=== PATIENT | female | born 1960 | race American Indian/Alaskan Native ===

== ENCOUNTER 2019-09-04 10:00 | Outpatient (CLI) | payer MEDICARE ==
[2019-09-04] MEDS ORDERED: XYLOCAINE TOPICAL 4% TP ONE (10:30)
[2019-09-04] MEDS ORDERED: AD OINTMENT TP SCH (11:00)
== END 2019-09-04 10:01 | disposition home or self-care (01) ==
LOC: WOUND 10:00
PROVIDERS: ATTEND Surgery
DX: T87.89 Other complications of amputation stump (principal); E11.622 Type 2 diabetes mellitus with other skin ulcer; I70.242 Atherosclerosis of native arteries of left leg with ulceration of calf; L97.222 Non-pressure chronic ulcer of left calf with fat layer exposed; L97.812 Non-pressure chronic ulcer of other part of right lower leg with fat layer exposed; E11.22 Type 2 diabetes mellitus with diabetic chronic kidney disease; I13.2 Hypertensive heart and chronic kidney disease with heart failure and with stage 5 chronic kidney disease, or end stage renal disease; I50.9 Heart failure, unspecified; N18.6 End stage renal disease; E78.5 Hyperlipidemia, unspecified; K21.9 Gastro-esophageal reflux disease without esophagitis; E05.90 Thyrotoxicosis, unspecified without thyrotoxic crisis or storm; Z95.1 Presence of aortocoronary bypass graft; Z87.891 Personal history of nicotine dependence; Y83.5 Amputation of limb(s) as the cause of abnormal reaction of the patient, or of later complication, without mention of misadventure at the time of the procedure
CPT/HCPCS: 11042; G0463; 99214

== ENCOUNTER 2019-11-16 12:28 | Inpatient (IN) | payer MEDICARE ==
[2019-11-16] MEDS ORDERED: ALBUTEROL 2.5 MG/3 ML NEBU IH ONE (14:28)
--- NOTE | 2019-11-16 14:34 | Emergency Department Report ---
ED General Adult HPI - General Chief complaint: Dyspnea/Respdistress Stated complaint: DIFFICULTY BREATHING Time Seen by Provider: 11/16/19 14:11 Source: patient, family, EMS (EMS records not available at time of chart dictation.), RN notes reviewed, old records reviewed Mode of arrival: Stretcher Limitations: Physical Limitation - History of Present Illness Initial comments: Primary care Dr.: Dr Givens Nephrology: Dr Mcdowell CT surgeon at [facility]: Dr. Russo This is a 59-year-old female. Past medical history includes diabetes, hypertension, CHF, ejection fraction 40%, severe aortic stenosis, heart disease status post CABG 3, PVD, status post left below-knee amputation. Patient reports having had TAVR at [facility] October 2019. Today, patient presents to the ER with a complaint of cough, shortness of breath. She was brought to the hospital by EMS on CPAP. She was at hemodialysis today, but received an incomplete session, secondary to cough. She has been coughing for a few weeks. Sometimes the cough is dry, sometimes it is productive. She has chronic orthopnea, and typically sleeps sitting up. She saw her primary care doctor, who prescribed Tessalon Perles, doxycycline, and albuterol therapy. This really did not help her symptoms. She denies physical pain at this time. She feels like she is fluid overloaded s ubjectively. Cough is intermittent, painless, worsens with laying flat, improves when sitting up, and with rest. -: Gradual, week(s) Quality: other Consistency: other Improves with: other Worsens with: other Associated Symptoms: other - Related Data Home Medications Medication Instructions Recorded Confirmed Last Taken AtorvaSTATin [Lipitor] 20 mg PO QHS 08/26/19 09/06/19 08/25/19 Clopidogrel [Plavix] 75 mg PO QDAY 08/26/19 09/06/19 08/25/19 Gabapentin 100 mg PO QHS 08/26/19 09/06/19 08/25/19 Levothyroxine [Synthroid] 25 mcg PO QAM 08/26/19 09/06/19 08/25/19 Ondansetron HCl [Ondansetron TAB] 4 mg PO PRN PRN 08/26/19 09/06/19 08/25/19 Sevelamer Carbonate [Renvela] 800 mg PO TIDWM 08/26/19 09/06/19 08/25/19 amLODIPine 100 mg PO DAILY 08/26/19 09/06/19 08/25/19 carvediloL [Coreg] 25 mg PO BID 08/26/19 09/06/19 08/25/19 lisinopriL [Zestril TAB] 20 mg PO QDAY 08/26/19 09/06/19 08/25/19 Previous Rx's Medication Instructions Recorded Last Taken Type Insulin Regular, Human [HumuLIN R] 0 unit SQ AC #1 vial 08/30/19 Unknown Rx Allergies Allergy/AdvReac Type Severity Reaction Status Date / Time ceftriaxone [From Rocephin] AdvReac Intermediate Vomiting Verified 08/26/19 09:03 ED Review of Systems ROS: Stated complaint: DIFFICULTY BREATHING Other details as noted in HPI Constitutional: malaise Eyes: denies: eye discharge ENT: congestion Respiratory: cough, shortness of breath, wheezing Cardiovascular: edema Gastrointestinal: denies: abdominal pain Genitourinary: denies: dysuria Musculoskeletal: myalgia Skin: denies: lesions Neurological: weakness Psychiatric: anxiety Hematological/Lymphatic: denies: easy bleeding ED Past Medical Hx - Past Medical History Hx Hypertension: Yes Hx Heart Attack/AMI: Yes Hx Congestive Heart Failure: Yes Hx Diabetes: Yes Hx Renal Disease: Yes (T, , MON) Hx Asthma: No Hx COPD: No Additional medical history: Open heart surgery (March 2017), L Leg BKA - Surgical History Hx Coronary Stent: Yes Hx Open Heart Surgery: Yes Additional Surgical History: hernia repair. graft left upper arm, T&A - Social History Smoking Status: Former Smoker - Medications Home Medications: Home Medications Medication Instructions Recorded Confirmed Last Taken Type AtorvaSTATin [Lipitor] 20 mg PO QHS 08/26/19 09/06/19 08/25/19 History Clopidogrel [Plavix] 75 mg PO QDAY 08/26/19 09/06/19 08/25/19 History Gabapentin 100 mg PO QHS 08/26/19 09/06/19 08/25/19 History Levothyroxine [Synthroid] 25 mcg PO QAM 08/26/19 09/06/19 08/25/19 History Ondansetron HCl [Ondansetron TAB] 4 mg PO PRN PRN 08/26/19 09/06/1908/25/19 History Sevelamer Carbonate [Renvela] 800 mg PO TIDWM 08/26/19 09/06/19 08/25/19 History amLODIPine 100 mg PO DAILY 08/26/19 09/06/19 08/25/19 History carvediloL [Coreg] 25 mg PO BID 08/26/19 09/06/19 08/25/19 History lisinopriL [Zestril TAB] 20 mg PO QDAY 08/26/19 09/06/19 08/25/19 History Insulin Regular, Human [HumuLIN R] 0 unit SQ AC #1 vial 08/30/19 09/06/19 Unknown Rx ED Physical Exam - General Limitations: No Limitations, Physical Limitation General appearance: alert, anxious, in distress, obese - Head Head exam: Present: atraumatic, normocephalic - Eye Eye exam: Present: normal appearance, EOMI. Absent: nystagmus - ENT ENT exam: Present: normal exam, normal orophraynx, mucous membranes moist, normal external ear exam - Neck Neck exam: Present: normal inspection, full ROM. Absent: tenderness, meningismus - Respiratory Respiratory exam: Present: respiratory distress, rales, rhonchi - Cardiovascular Cardiovascular Exam: Present: regular rate, normal rhythm, systolic murmur, JVD. Absent: diastolic murmur, rubs, gallop - GI/Abdominal GI/Abdominal exam: Present: soft. Absent: distended, tenderness, guarding, rebound, rigid, pulsatile mass - Extremities Exam Extremities exam: Present: normal inspection, full ROM, pedal edema, other (2+ pulses noted in the bilateral upper extremities and right lower extremity. Left lower extremity status post left below-knee amputation. Left upper extremity fistula appreciated, without redness, pus or streaking.). Absent: calf t enderness - Back Exam Back exam: Present: normal inspection. Absent: tenderness, CVA tenderness (R), CVA tenderness (L), paraspinal tenderness, vertebral tenderness - Neurological Exam Neurological exam: Present: alert, other (there is no facial droop. The tongue is midline. Extraocular movements are intact bilaterally. Speaking in full sentences. Hearing is grossly intact. 5 out of 5 strength bilateral upper and lower extremities. Sensation is intact to light touch bilateral upper and lower extremities.). Absent: motor sensory deficit - Psychiatric Psychiatric exam: Present: anxious - Skin Skin exam: Present: warm, dry, intact, normal color. Absent: rash ED Course Vital Signs 11/16/19 11/16/19 11/16/19 14:03 14:49 14:59 Temperature 98.1 F Pulse Rate 88 88 88 Respiratory 23 Rate Blood Pressure 199/79 203/87 Blood Pressure 199/85 [Right] O2 Sat by Pulse 97 Oximetry 11/16/19 15:02 Temperature Pulse Rate 88 Respiratory Rate Blood Pressure Blood Pressure [Right] O2 Sat by Pulse Oximetry ED Medical Decision Making - Lab Data Result diagrams: 11/16/19 14:33 11/16/19 14:33 Vital Signs 11/16/19 11/16/19 11/16/19 14:03 14:49 14:59 Temperature 98.1 F Pulse Rate 88 88 88 Respiratory 23 Rate Blood Pressure 199/79 203/87 Blood Pressure 199/85 [Right] O2 Sat by Pulse 97 Oximetry 11/16/19 11/16/19 11/16/19 15:02 16:04 16:05 Temperature Pulse Rate 88 98 H 98 H Respiratory Rate Blood Pressure 198/79 198/97 Blood Pressure [Right] O2 Sat by Pulse Oximetry 11/16/19 16:06 Temperature Pulse Rate 98 H Respiratory Rate Blood Pressure 198/87 Blood Pressure [Right] O2 Sat by Pulse Oximetry Lab Results 11/16/19 11/16/19 11/16/19 Range/Units 14:33 14:33 14:33 WBC 8.0 (4.5-11.0) K/mm3 RBC 3.83 (3.65-5.03) M/mm3 Hgb 11.9 (10.1-14.3) gm/dl Hct 37.4 (30.3-42.9) % MCV 98 H (79-97) fl MCH 31 (28-32) pg MCHC 32 (30-34) % RDW 25.0 H (13.2-15.2) % Plt Count 121 L (140-440) K/mm3 PT 14.8 (12.2-14.9) Sec. INR 1.14 H (0.87-1.13) Sodium 134 L (137-145) mmol/L Potassium 5.6 H (3.6-5.0) mmol/L Chloride 93.7 L (98-107) mmol/L Carbon Dioxide 23 (22-30) mmol/L Anion Gap 23 mmol/L BUN 60 H (7-17) mg/dL Creatinine 8.7 H (0.7-1.2) mg/dL Estimated GFR 6 ml/min BUN/Creatinine Ratio 7 % Glucose 155 H (65-100) mg/dL Calcium 9.3 (8.4-10.2) mg/dL Magnesium 2.60 H (1.7-2.3) mg/dL Total Bilirubin 0.60 (0.1-1.2) mg/dL AST 39 (5-40) units/L ALT 19 (7-56) units/L Alkaline Phosphatase 102 (35-129) units/L Total Creatine Kinase 240 H (30-135) units/L NT-Pro-B Natriuret Pep > 30190 H (0-900) pg/mL Total Protein 8.5 H (6.3-8.2) g/dL Albumin 4.1 (3.9-5) g/dL Albumin/Globulin Ratio 0.9 % - EKG Data -: EKG Interpreted by Md EKG shows normal: sinus rhythm Rate: normal - EKG Data 11/16/19 16:09 The EKG today has motion artifact. It shows a sinus rhythm, with left axis deviation, left ventricular hypertrophy, poor R wave progression, QTC prolonged. This EKG is abnormal. The EKG is not consistent with STEMI. It appears to be grossly unchanged from prior EKG from 09/05/2019. - Radiology Data Radiology results: report reviewed, image reviewed X-ray of the chest shows pulmonary vascular congestion, enlarged cardiac silhouette, left hemithoracic monitoring device. No pneumothorax. No obvious infiltrate. - Medical Decision Making Differential diagnosis, including but not limited to: Hypertensive urgency, uremia, azotemia, hyperkalemia, fluid overload, bronchitis, sleep apnea, status post TAVR Assessment and plan: 59-year-old female with cough, shortness of breath, some hypoxia, evidence of fluid overload and hypertensive urgency, meets criteria for urgent hemodialysis, manifest by physical exam findings, hypoxia, chest x-ray findings, and laboratory studies. We contacted covering nephrology, Dr. Philip Wick, who will arrange for hemodialysis. Discussed with Hospital physician, Dr. Carl, who will accept the patient to the medical service. Discussed plan of care with patient and family, who verbalized understanding, and are amenable to admission. Patient at this point time has not followed up with an outpatient sleep doctor if she was supposed to, we discussed the need for follow-up after discharge, to rule in or rule out diagnosis of sleep apnea. Critical care attestation.: If time is entered above; I have spent that time in minutes in the direct care of this critically ill patient, excluding procedure time. ED Disposition Clinical Impression: End-stage renal disease needing dialysis, Shortness of breath, Volume overload, Hypertensive urgency Disposition: OP ADMIT IP TO THIS HOSP Is pt being admited?: Yes Condition: Stable
--- NOTE | 2019-11-16 14:38 | XRay Report ---
CHEST 1 VIEW INDICATION / CLINICAL INFORMATION: Dyspnea. FINDINGS: Comparison radiograph from 09/09/2019. Stable cardiomediastinal silhouette with cardiomegaly. An elec tronic device now projects over the left upper thorax. There is similar blunting of the left costophr enic sulcus and obscuration of a portion of the left diaphragm, but this may be due to superimpositio n of soft tissues over the lung. No pneumothorax. Overall, no significant change. Signer Name: Pito Berrios MD Signed: 11/16/2019 2:34 PM Workstation Name: [id number]
[2019-11-16] MEDS: NITROGLYCERIN 0.4 MG TAB SUBL SL PRN ×3 (14:49→16:10)
[2019-11-16] MEDS ORDERED: LISINOPRIL 20 MG TAB PO SCH (15:00)
[2019-11-16 15:10] LABS: Hematocrit 37.4 % (30.3-42.9); Hemoglobin 11.9 gm/dl (10.1-14.3); Mean Corpuscular HGB Conc 32 % (30-34); Mean Corpuscular Volume 98 fl (79-97); Platelet Count 121 K/mm3 (140-440); Red Blood Count 3.83 M/mm3 (3.65-5.03)
[2019-11-16 15:25] LABS: INR 1.14 (0.87-1.13)
[2019-11-16 15:29] LABS: BUN/Creatinine Ratio 7; Blood Urea Nitrogen 60 mg/dL (7-17)
[2019-11-16 15:30] LABS: Alanine Aminotransferase 19 units/L (7-56); Calcium 9.3 mg/dL (8.4-10.2)
[2019-11-16 15:31] LABS: Albumin 4.1 g/dL (3.9-5)
[2019-11-16] MEDS: amLODIPine 10 MG TAB PO SCH (16:04)
[2019-11-16] MEDS: carvediloL 25 MG TAB PO SCH ×2 (16:05→22:39)
[2019-11-16] MEDS ORDERED: SODIUM CHLORIDE 0.9% 100 ML IV PRN (16:06)
[2019-11-16 17:08] LABS: Hepatitis B Surface Antigen Non-Reactive (Negative); Hepatitis C Virus Antibody Non-Reactive (NonReactive)
[2019-11-16] MEDS ORDERED: ACETAMINOPHEN 500 MG TAB ONE (17:10)
[2019-11-16] MEDS ORDERED: ONDANSETRON HCL 4 MG PO PRN (19:37)
[2019-11-16] MEDS ORDERED: hydrALAZINE 20 MG/1 ML INJ IV PRN (19:40)
[2019-11-16] MEDS ORDERED: ONDANSETRON 4 MG/2 ML INJ IV PRN (19:41)
[2019-11-16] MEDS ORDERED: ACETAMINOPHEN 325 MG TAB PO PRN (19:41)
[2019-11-16] MEDS ORDERED: DEXTROSE 50% IN WATER (25GM) 50 ML SYRINGE IV PRN (19:42)
--- NOTE | 2019-11-16 19:44 | History and Physical Report ---
History of Present Illness Date of admission: 11/16/19 16:35 Chief complaint: Shortness of breath History of present illness: 59-year-old woman with past medical history of CHF and end-stage renal disease who presents to the hospital with shortness of breath, orthopnea and dyspnea on exertion. States that she is been coughing for a few weeks. She recently had a TAVR in October 2019 for severe aortic stenosis. The patient states that she has not missed any dialysis sessions, she is compliant with all her medications and low-salt diet. She reports weight gain and feels fluid overloaded Past medical history; hypertension, CAD status post GA, CHF systolic EF 40%, diabetes, end-stage renal disease Monday dialysis schedule, history of severe aortic stenosis status post TAVR in October 2019 Past surgical history; TAVR last month at [facility]. Open heart surgery in 2017, left leg BKA, AV grafts, left upper extremity, T&A, hernia repair Social history; former smoker, denies illicit drug use or alcohol abuse. Is compliant with her dialysis Family history; hypertension Medications and Allergies Allergies Allergy/AdvReac Type Severity Reaction Status Date / Time ceftriaxone [From Rocephin] AdvReac Intermediate Vomiting Verified 08/26/19 09:03 Home Medications Medication Instructions Recorded Confirmed Last Taken Type AtorvaSTATin [Lipitor] 20 mg PO QHS 08/26/19 09/06/19 08/25/19 History Clopidogrel [Plavix] 75 mg PO QDAY 08/26/19 09/06/19 08/25/19 History Gabapentin 100 mg PO QHS 08/26/19 09/06/19 08/25/19 History Levothyroxine [Synthroid] 25 mcg PO QAM 08/26/19 09/06/19 08/25/19 History Ondansetron HCl [Ondansetron TAB] 4 mg PO PRN PRN 08/26/19 09/06/19 08/25/19 History Sevelamer Carbonate [Renvela] 800 mg PO TIDWM 08/26/19 09/06/19 08/25/19 History amLODIPine 100 mg PO DAILY 08/26/19 09/06/19 08/25/19 History carvediloL [Coreg] 25 mg PO BID 08/26/19 09/06/19 08/25/19 History lisinopriL [Zestril TAB] 20 mg PO QDAY 08/26/19 09/06/19 08/25/19 History Insulin Regular, Human [HumuLIN R] 0 unit SQ AC #1 vial 08/30/19 09/06/19 Unknown Rx Active Meds: Active Medications Amlodipine Besylate (Amlodipine) 100 mg PO DAILY [facility] Last Admin: 11/16/19 16:04 Dose: 100 mg Documented by: Carvedilol (Coreg) 25 mg PO BID [facility] Last Admin: 11/16/19 16:05 Dose: 25 mg Documented by: Sodium Chloride (Nacl 0.9%) 100 mls @ 999 mls/hr IV DAJUAN PRN PRN Reason: Hypotension Lisinopril (Zestril) 20 mg PO QDAY [facility] Last Admin: 11/16/19 16:06 Dose: 20 mg Documented by: Nitroglycerin (Nitrostat) 0.4 mg SL .Q5MIN PRN PRN Reason: Cough Last Admin: 11/16/19 16:10 Dose: 0.4 mg Documented by: Review of Systems All systems: negative Constitutional: weakness Cardiovascular: orthopnea, edema, shortness of breath, dyspnea on exertion, paroxysmal nocturnal dyspnea, high blood pressure, leg edema, decreased exercise tolerance Exam - Constitutional Vitals: Temp Pulse Resp BP Pulse Ox 98.1 F 93 H 18 179/84 97 11/16/19 14:03 11/16/19 19:30 11/16/19 17:15 11/16/19 19:30 11/16/19 14:03 General appearance: Present: mild distress, well-nourished - EENT Eyes: Present: PERRL ENT: hearing intact, clear oral mucosa - Neck Neck: Present: supple, normal ROM - Respiratory Respiratory effort: normal Respiratory: bilateral: rales - Cardiovascular Heart Sounds: Present: S1 & S2. Absent: rub, click - Extremities Extremities: pulses symmetrical Extremity abnormal: edema Peripheral Pulses: within normal limits - Abdominal General gastrointestinal: Present: soft, non-tender, non-distended, normal bowel sounds Female genitourinary: Present: normal - Integumentary Integumentary: Present: clear, warm, dry - Musculoskeletal Musculoskeletal: gait normal, strength equal bilaterally - Psychiatric Psychiatric: appropriate mood/affect, intact judgment & insight - Neurologic Neurologic: CNII-XII intact, moves all extremities Results - Labs CBC & Chem 7: 11/16/19 14:33 11/16/19 14:33 Labs: Laboratory Last Values WBC 8.0 K/mm3 (4.5-11.0) 11/16/19 14:33 RBC 3.83 M/mm3 (3.65-5.03) 11/16/19 14:33 Hgb 11.9 gm/dl (10.1-14.3) 11/16/19 14:33 Hct 37.4 % (30.3-42.9) 11/16/19 14:33 MCV 98 fl (79-97) H 11/16/19 14:33 MCH 31 pg (28-32) 11/16/19 14:33 MCHC 32 % (30-34) 11/16/19 14:33 RDW 25.0 % (13.2-15.2) H 11/16/19 14:33 Plt Count 121 K/mm3 (140-440) L 11/16/19 14:33 PT 14.8 Sec. (12.2-14.9) 11/16/19 14:33 INR 1.14 (0.87-1.13) H 11/16/19 14:33 Sodium 134 mmol/L (137-145) L 11/16/19 14:33 Potassium 5.6 mmol/L (3.6-5.0) H 11/16/19 14:33 Chloride 93.7 mmol/L (98-107) L 11/16/19 14:33 Carbon Dioxide 23 mmol/L (22-30) 11/16/19 14:33 Anion Gap 23 mmol/L 11/16/19 14:33 BUN 60 mg/dL (7-17) H 11/16/19 14:33 Creatinine 8.7 mg/dL (0.7-1.2) H 11/16/19 14:33 Estimated GFR 6 ml/min 11/16/19 14:33 BUN/Creatinine Ratio 7 % 11/16/19 14:33 Glucose 155 mg/dL (65-100) H 11/16/19 14:33 Calcium 9.3 mg/dL (8.4-10.2) 11/16/19 14:33 Magnesium 2.60 mg/dL (1.7-2.3) H 11/16/19 14:33 Total Bilirubin 0.60 mg/dL (0.1-1.2) 11/16/19 14:33 AST 39 units/L (5-40) 11/16/19 14:33 ALT 19 units/L (7-56) 11/16/19 14:33 Alkaline Phosphatase 102 units/L (35-129) 11/16/19 14:33 Total Creatine Kinase 240 units/L (30-135) H 11/16/19 14:33 NT-Pro-B Natriuret Pep > 09281 pg/mL (0-900) H 11/16/19 14:33 Total Protein 8.5 g/dL (6.3-8.2) H 11/16/19 14:33 Albumin 4.1 g/dL (3.9-5) 11/16/19 14:33 Albumin/Globulin Ratio 0.9 % 11/16/19 14:33 Hepatitis A IgM Ab Non-reactive (NonReactive) 11/16/19 16:25 Hep Bs Antigen Non-reactive (Negative) 11/16/19 16:25 Hep B Core IgM Ab Non-reactive (NonReactive) 11/16/19 16:25 Hepatitis C Antibody Non-reactive (NonReactive) 11/16/19 16:25 Assessment and Plan Assessment and plan: 59-year-old woman with known history of CHF end-stage renal disease who presents with shortness of breath and cough Chest x-ray; compared to previous x-ray and there is electronic device now over the left upper thorax, there appears to be mild left effusion Acute hypoxic respiratory failure due to CHF, continue supplemental oxygen should improve with fluid removal. History of severe aortic stenosis status post TAVR last month Given that patient is now presenting with CHF, it is worthwhile to repeat echo Cough x several weeks, will try changing from ZENON to arb to see if this relieves her symptoms End-stage renal disease, hyperkalemia -HD per nephrology Acute on chronic systolic heart Failure -Fluid removal via dialysis, continue home meds of ZENON inhibitor and beta- sejal -Recent echo in August 2019 shows EF of 45%, cardiology consult, ESRD/hyperkalemia/uremia Hemodialysis Per nephrology Hypertensive urgency Expect blood pressure to improve with urgent dialysis the patient is going for today, hydralazine as needed, continue home BP meds Hypothyroidism Continue Synthroid, check thyroid function test Diabetes Consistent carbohydrate diet, sliding scale insulin, check A1c dvt ppx lovenox renally dosed
[2019-11-16] MEDS ORDERED: GABAPENTIN 100 MG CAP PO SCH (22:00)
[2019-11-16] MEDS: LOSARTAN 50 MG TAB PO SCH (22:39)
[2019-11-16] MEDS ORDERED: INSULIN REGULAR, HUMAN 100 UNITS/1 ML SUB-Q ONE (23:02)
[2019-11-17 04:28] LABS: Calcium 9.1 mg/dL (8.4-10.2)
[2019-11-17] MEDS ORDERED: LEVOTHYROXINE 25 MCG TAB PO SCH (06:00)
[2019-11-17] MEDS: INSULIN REGULAR, HUMAN 100 UNITS/1 ML SUB-Q SCH ×2 (07:30→11:30)
[2019-11-17] MEDS: SEVELAMER CARBONATE 800 MG TAB PO SCH ×2 (08:57→12:47)
[2019-11-17] MEDS: LOSARTAN 50 MG TAB PO SCH (09:59)
[2019-11-17] MEDS ORDERED: CLOPIDOGREL 75 MG TAB PO SCH (10:00)
[2019-11-17] MEDS ORDERED: amLODIPine 10 MG TAB PO SCH (10:00)
[2019-11-17] MEDS ORDERED: ENOXAPARIN 30 MG/0.3 ML INJ SUB-Q SCH (10:00)
[2019-11-17] MEDS: carvediloL 25 MG TAB PO SCH (10:15)
[2019-11-17] MEDS: amLODIPine 10 MG TAB PO SCH (10:22)
--- NOTE | 2019-11-17 10:43 | Consultation ---
History of Present Illness - Reason for Consult Consult date: 11/17/19 end stage renal disease, hyperkalemia - History of Present Illness The patient is a 59 YO female with history significant for DM type 2, HTN, HLD, Anxiety, CAD s/p CABG, CHF systolic EF 40%, ESRD on hemodialysis (TTS) h/o se sean aortic stenosis s/p TAVR in October 2019 who presented to [facility] ED 11/16 with c/o shortness of breath, orthopnea, SKINNER and persistent dry cough. Pt states that she has been coughing for atleast 3 weeks. She was also diagnosed with pleural effusion last month at [facility]. The patient states that she has not missed any dialysis sessions, compliant with all her medications and low-salt diet. On admission she reported weight gain and feeling fluid overloaded. Patient received hemodialysis yesterday in the hospital. Her symptoms improving now. Nephrology was consulted for further evaluation. Past History Past Medical History: anemia, CAD, diabetes, dialysis, ESRD, hypertension, hyperlipidemia Medications and Allergies Allergies Allergy/AdvReac Type Severity Reaction Status Date / Time ceftriaxone [From Rocephin] AdvReac Intermediate Vomiting Verified 08/26/19 09:03 Home Medications Medication Instructions Recorded Confirmed Last Taken Type AtorvaSTATin [Lipitor] 20 mg PO QHS 08/26/19 11/17/19 08/25/19 History Clopidogrel [Plavix] 75 mg PO QDAY 08/26/19 11/17/19 08/25/19 History Gabapentin 100 mg PO QHS 08/26/19 11/17/19 08/25/19 History Levothyroxine [Synthroid] 25 mcg PO QAM 08/26/19 11/17/19 08/25/19 History Ondansetron HCl [Ondansetron TAB] 4 mg PO Q6HR PRN 08/26/19 11/17/19 08/25/19 History Sevelamer Carbonate [Renvela] 800 mg PO TIDWM 08/26/19 11/17/19 08/25/19 History amLODIPine 10 mg PO DAILY 08/26/19 11/17/19 08/25/19 History carvediloL [Coreg] 25 mg PO BID 08/26/19 11/17/19 08/25/19 History lisinopriL [Zestril TAB] 20 mg PO QDAY 08/26/19 11/17/19 08/25/19 History NovoLOG 100 UNITS/ML VIAL See Protocol SQ ACHS 11/17/19 11/17/19 Unknown History Active Meds: Active Medications Acetaminophen (Tylenol) 650 mg PO Q4H PRN PRN Reason: Pain MILD(1-3)/Fever >100.5/PAN Last Admin: 11/16/19 23:48 Dose: 650 mg Documented by: Amlodipine Besylate (Amlodipine) 10 mg PO DAILY [facility] Last Admin: 11/17/19 10:16 Dose: 10 mg Documented by: Atorvastatin Calcium (Lipitor) 20 mg PO QHS [facility] Last Admin: 11/16/19 22:40 Dose: 20 mg Documented by: Carvedilol (Coreg) 25 mg PO BID [facility] Last Admin: 11/17/19 10:15 Dose: 25 mg Documented by: Clopidogrel Bisulfate (Plavix) 75 mg PO QDAY [facility] Last Admin: 11/17/19 09:57 Dose: 75 mg Documented by: Dextrose (D50w (25gm) Syringe) 50 ml IV Q30MIN PRN; Protocol PRN Reason: Hypoglycemia Enoxaparin Sodium (Enoxaparin) 30 mg SUB-Q QDAY [facility] Last Admin: 11/17/19 09:59 Dose: 30 mg Documented by: Gabapentin (Gabapentin) 100 mg PO QHS [facility] Last Admin: 11/16/19 22:40 Dose: 100 mg Documented by: Hydralazine HCl (Apresoline) 10 mg IV Q4H PRN PRN Reason: BP >160/100 Sodium Chloride (Nacl 0.9%) 100 mls @ 999 mls/hr IV DAJUAN PRN PRN Reason: Hypotension Insulin Human Regular (Humulin R) 0 units SUB-Q [facility]; Protocol Last Admin: 11/17/19 07:30 Dose: 2 units Documented by: Levothyroxine Sodium (Synthroid) 25 mcg PO QAM@0600 [facility] Last Admin: 11/17/19 06:02 Dose: 25 mcg Documented by: Losartan Potassium (Cozaar) 50 mg PO QDAY [facility] Last Admin: 11/17/19 09:59 Dose: 50 mg Documented by: Nitroglycerin (Nitrostat) 0.4 mg SL .Q5MIN PRN PRN Reason: Cough Last Admin: 11/16/19 16:10 Dose: 0.4 mg Documented by: Ondansetron HCl (Zofran) 4 mg IV Q8H PRN PRN Reason: Nausea And Vomiting Last Admin: 11/16/19 23:49 Dose: 4 mg Documented by: Sevelamer Carbonate (Renvela) 800 mg PO TIDWM [facility] Last Admin: 11/17/19 08:57 Dose: 800 mg Documented by: Sodium Chloride (Sodium Chloride Flush Syringe 10 Ml) 10 ml IV BID [facility] Last Admin: 11/17/19 10:00 Dose: 10 ml Documented by: Sodium Chloride (Sodium Chloride Flush Syringe 10 Ml) 10 ml IV PRN PRN PRN Reason: LINE FLUSH Review of Systems Constitutional: weight gain, no weight loss, no fever, no chills, no anorexia, no fatigue, no weakness, no poor appetite Breasts: deferred Cardiovascular: orthopnea, shortness of breath, dyspnea on exertion, paroxysmal nocturnal dyspnea, decreased exercise tolerance, no chest pain, no palpitations, no edema, no syncope, no lightheadedness, no high blood pressure, no leg edema Respiratory: cough, shortness of breath, dyspnea on exertion, no excessive sputum, no hemoptysis, no wheezing Gastrointestinal: no abdominal pain, no nausea, no vomiting, no diarrhea, no melena, no hematochezia Rectal: no bleeding Musculoskeletal: no morning stiffness, no muscle weakness, no muscle cramps Integumentary: no rash, no redness, no sores, no wounds Neurological: no seizures, no syncope, no convulsions, no aphasia, no change in speech, no change in mentation, no confusion Exam - Vital Signs Vital signs: Vital Signs Resp Pulse Ox 25 H 97 11/16/19 13:09 11/16/19 13:09 - General Appearance General appearance: well-developed, well-nourished, appears stated age, other (not in distress) EENT: ATNC, PERRL, hearing intact, vision intact Neck: Present: neck supple, trachea midline Respiratory: Clear to Ascultation Heart: regular, S1S2, no murmurs Gastrointestinal: Present: normoactive bowel sounds. Absent: tenderness, distended Integumentary: no rash, warm and dry Neurologic: no focal deficit, no asterixis, alert and oriented x3 Musculoskeletal: Present: other (no edema, L BKA, Hemodialysis access: L arm AVF) Results - Lab Results 11/16/19 14:33 11/17/19 03:34 Most recent lab results Calcium 9.1 mg/dL (8.4-10.2) 11/17/19 03:34 Magnesium 2.60 mg/dL (1.7-2.3) H 11/16/19 14:33 Assessment and Plan 1. ESRD: Continue HD three times a week, TTS schedule. 2. FEN: Hyperkalemia, monitor. Blood sugar 441. Last dialyzed yesterday. 3. Acute hypoxic respiratory failure: Likely due to CHF. S/p UF with HD 11/16. Continue supplemental O2. Improving. 4. Acute on chronic systolic CHF, POA: S/p UF witH HD 11/16. Recent echo in August 2019 showed EF of 45%. 5. History of severe aortic stenosis s/p TAVR 10/2019. 6. Persistent Cough: Lisinopril stopped. Monitor. 7. Hypertensive urgency: Continue home BP meds. Losartan added. 8. DM type 2. 9. Hypothyroidism.
[2019-11-17 13:01] VITALS: BP 165/68
--- NOTE | 2019-11-17 15:34 | Discharge Summary ---
Providers - Providers Date of Admission: 11/16/19 16:35 Date of discharge: 11/17/19 Attending physician: WENDY NEWELL 11/16/19 15:49 Consult to Physician [CONS] Urgent Comment: Consulting Provider: MARILIN SANDERSON Physician Instructions: Reason For Exam: esrd 11/16/19 19:40 Consult to Physician [CONS] Routine Comment: Consulting Provider: SU MCINTYRE Physician Instructions: Reason For Exam: chf 11/16/19 19:43 Consult to Dietitian/Nutrition [CONS] Routine Physician Instructions: Reason For Exam: Reason for Consult: Diet education Primary care physician: GUEST RELATIONS COORDINATOR Hospitalization Condition: Stable Hospital course: Patient is a 59-year-old woman with a history of hypertension, PAD s/p left BKA, CABG 2016, CAD s/p MN, CHF, EF 45%, ESRD TTS and severe aortic stenosis status post TAVR in October 23, 2019 at [facility] who presented to [facility] ED with SOB. * Chest x-ray; compared to previous x-ray and there is electronic device now over the left upper thorax, there appears to be mild left effusion Discharge Diagnoses: Acute hypoxic respiratory failure due to CHF, treated with supplemental oxygen should improve with fluid removal. History of severe aortic stenosis status post TAVR last month Given that patient is now presenting with CHF, it is worthwhile to repeat echo Cough x several weeks, will try changing from ZENON to arb to see if this relieves her symptoms Acute on chronic systolic heart Failure-Fluid removal via dialysis, continue home meds of ZENON inhibitor and beta-sejal ESRD/hyperkalemia/uremia-Hemodialysis Per nephrology Hypertensive urgency-Expect blood pressure to improve with urgent dialysis the patient is going for today, hydralazine as needed, continue home BP meds Hypothyroidism-Continue Synthroid, check thyroid function test Type 2 DM-Consistent carbohydrate diet, sliding scale insulin, check A1c Disposition: she is asymptomatic, after HD yesterday, she feels better, she is to return to [facility] at [place] on Nov 25. I have asked the nurse to send CD Copy of ECHO here Disposition: - TO HOME OR SELFCARE Time spent for discharge: 35 minutes Core Measure Documentation - Palliative Care Palliative Care/ Comfort Measures: Not Applicable - Core Measures Any of the following diagnoses?: heart failure - VTE Discharge Requirements Deep Vein Thrombosis/Pulmonary Embolism Present on Admission: No Has pt received <5 days of overlap therapy or INR<2.0: No Anticoagulant overlap therapy prescribed at discharge: No Contraindication No Overlap Therapy order at DC: Not Indicated - Heart Failure Discharge Requirements ZENON/ARB for LVSD if EF <40%: Yes Beta sejal at discharge: Yes Exam - Physical Exam Narrative exam: Gen: WDWN, NAD, Awake, Alert, Orientated x 3 HEENT: NCAT, EOMI, PERRL, OP Clear Neck: supple, no adenopathy, no thyromegaly, no JVD CVS/Heart: RRR, normal S1S2, pulses present bilaterally Chest/Lungs: CTA B, Symmetrical chest expansion, good air entry bilaterally GI/Abdomen: soft, NTND, good bowel sounds, no guarding or rebound /Bladder: no suprapubic tenderness, no CVA or paraspinal tenderness Extermity/Skin: no c/c/e, no obvious rash MSK: FROM x 3, left BKA stump looks c/d/i Neuro: CN 2-12 grossly intact, no new focal deficits Psych: calm - Constitutional Vitals: Temp Pulse Resp BP Pulse Ox 98.6 F 81 22 165/68 98 11/17/19 12:17 11/17/19 12:17 11/17/19 12:17 11/17/19 12:17 11/17/19 12:17 Plan Activity: other (no strenous activity unless cleared by your Heart Surgeon) Diet: low salt Additional Instructions: Take CD copy of ECHO to your heart surgeon on Nov 25 Follow up with: EDWIN SWAIN MD [Primary Care Provider] - 3-5 Days SU MCINTYRE MD [Staff Physician] - 7 Days MARILIN SANDERSON MD [Staff Physician] - 7 Days Prescriptions: Losartan [Cozaar] 50 mg PO QDAY #30 tablet
--- NOTE | 2019-11-17 17:45 | Event Note ---
Date: 11/17/19 Cardiology consult was not completed and is canceled, because patient has already been discharged home by the primary managing service. We did review her echocardiogram which shows left ventricle ejection fraction 35-40%, evidence of a well functioning bioprosthetic aortic valve replacement. Per her discharge records, she has been instructed to follow-up with her primary primary school teacher Dr. Ayala within a week of discharge.
== END 2019-11-17 17:30 | disposition home or self-care (01) | DRG 291 ==
LOC: ED 12:28 → OBSVTOIN 16:35 → 3A 16:35
PROVIDERS: ADMIT Internal Medicine; ATTEND Internal Medicine
PROC: 5A1D70Z Performance of Urinary Filtration, Intermittent, Less than 6 Hours Per Day (ICD-10-PCS; principal; 2019-11-16)
DX: I13.2 Hypertensive heart and chronic kidney disease with heart failure and with stage 5 chronic kidney disease, or end stage renal disease (principal); I50.23 Acute on chronic systolic (congestive) heart failure; N18.6 End stage renal disease; J96.02 Acute respiratory failure with hypercapnia; I16.0 Hypertensive urgency; Z88.8 Allergy status to other drugs, medicaments and biological substances; Z99.2 Dependence on renal dialysis; Z95.1 Presence of aortocoronary bypass graft; Z89.512 Acquired absence of left leg below knee; Z79.899 Other long term (current) drug therapy; E11.22 Type 2 diabetes mellitus with diabetic chronic kidney disease; Z87.891 Personal history of nicotine dependence; I25.10 Atherosclerotic heart disease of native coronary artery without angina pectoris; Z82.49 Family history of ischemic heart disease and other diseases of the circulatory system; I25.2 Old myocardial infarction; Z79.4 Long term (current) use of insulin; E87.5 Hyperkalemia; F41.9 Anxiety disorder, unspecified; E03.9 Hypothyroidism, unspecified
CPT/HCPCS: 36415; 71045; 80048; 80053; 80074; 82550; 82962; 83735; 83880; 84436; 84439; 84443; 85027; 85610; 87116; 93005; 93010; 93306; G0378; A9270-GY; J1650; J1815; J2405

== ENCOUNTER 2020-02-25 16:55 | Emergency (ER) | payer MEDICARE ==
[2020-02-25] MEDS ORDERED: ONDANSETRON 4 MG/2 ML INJ IV ONE (17:28)
--- NOTE | 2020-02-25 17:38 | Emergency Department Report ---
HPI - General Chief Complaint: Medical Clearance Time Seen by Provider: 02/25/20 17:27 - HPI HPI: 60-year-old female presents to the emergency department via EMS with complaint of a bleeding left upper extremity dialysis fistula that began after she compl eted her dialysis around 3 PM today. She has a past medical history that includes yqh-[id number]-isoattysa diabetes, hypertension, hyperlipidemia, coronary artery disease status post CABG, CHF, aortic stenosis, and end-stage renal disease on hemodialysis TTS. Patient's rollout manager is through [facility]. When the patient arrived to the emergency department she had some episodes of nausea and vomiting. Patient is on Plavix but is not on any blood thinners. She goes to [facility] up the street for dialysis. ED Past Medical Hx - Past Medical History Hx Hypertension: Yes Hx Heart Attack/AMI: Yes Hx Congestive Heart Failure: Yes Hx Diabetes: Yes Hx GERD: Yes Hx Renal Disease: Yes (T, TH, SAT) Hx Kidney Stones: No Hx Asthma: No Hx COPD: No Hx Tuberculosis: No Hx HIV: No Additional medical history: Open heart surgery (March 2017), L Leg BKA - Surgical History Hx Coronary Stent: Yes Hx Open Heart Surgery: Yes Hx Pacemaker: No Hx Internal Defibrillator: No Additional Surgical History: hernia repair. graft left upper arm, T&A, L.B.K.A - Social History Smoking Status: Former Smoker Substance Use Type: None - Medications Home Medications: Home Medications Medication Instructions Recorded Confirmed Last Taken Type AtorvaSTATin [Lipitor] 20 mg PO QHS 08/26/19 11/17/19 08/25/19 History Clopidogrel [Plavix] 75 mg PO QDAY 08/26/19 11/17/19 08/25/19 History Gabapentin 100 mg PO QHS 08/26/19 11/17/19 08/25/19 History Levothyroxine [Synthroid] 25 mcg PO QAM 08/26/19 11/17/19 08/25/19 History Sevelamer Carbonate [Renvela] 800 mg PO TIDWM 08/26/19 11/17/19 08/25/19 History amLODIPine 10 mg PO DAILY 08/26/19 11/17/19 08/25/19 History carvediloL [Coreg] 25 mg PO BID 08/26/19 11/17/19 08/25/19 History ondansetron HCL [Ondansetron TAB] 4 mg PO Q6HR PRN 08/26/19 11/17/19 08/25/19 H istory Losartan [Cozaar] 50 mg PO QDAY #30 tablet 11/17/19 Unknown Rx NovoLOG 100 UNITS/ML VIAL See Protocol SQ ACHS 11/17/19 11/17/19 Unknown History ED Review of Systems ROS: Stated complaint: BLEEDING FISTULA Other details as noted in HPI Comment: All other systems reviewed and negative Constitutional: denies: chills, fever Eyes: denies: eye pain, vision change ENT: denies: ear pain, throat pain Respiratory: denies: cough, shortness of breath Cardiovascular: denies: chest pain, palpitations Gastrointestinal: denies: abdominal pain, vomiting Genitourinary: denies: dysuria, discharge Musculoskeletal: denies: back pain, arthralgia Skin: denies: rash, lesions Neurological: denies: headache, weakness Hematological/Lymphatic: easy bleeding Physical Exam - Physical Exam Vital Signs: Vital Signs 02/25/20 02/25/20 17:24 17:27 Temperature 99.2 F Pulse Rate 69 Respiratory 18 18 Rate Blood Pressure 170/76 [Right] O2 Sat by Pulse 94 Oximetry Physical Exam: GENERAL: The patient is well-developed well-nourished. HENT: Normocephalic. Atraumatic. Patient has moist mucous membranes. EYES: Extraocular motions are intact. NECK: Supple. Trachea is midline. CHEST/LUNGS: Clear to auscultation. There is no respiratory distress noted. HEART/CARDIOVASCULAR: Regular. There is no tachycardia. ABDOMEN: Abdomen is soft, nontender. Patient has normal bowel sounds. SKIN: Skin is warm and dry. Patient has 2 areas of pulsatile bleeding from the left upper arm over her dialysis fistula. NEURO: The patient is awake, alert, and oriented. The patient is cooperative. Normal speech. MUSCULOSKELETAL: There is no tenderness or deformity. There is no limitation range of motion. ED Course Vital Signs 02/25/20 02/25/20 17:24 17:27 Temperature 99.2 F Pulse Rate 69 Respiratory 18 18 Rate Blood Pressure 170/76 [Right] O2 Sat by Pulse 94 Oximetry ED Medical Decision Making - Lab Data Result diagrams: 02/25/20 17:34 02/25/20 17:34 - Medical Decision Making This patient presents after getting dialysis and having post dialysis bleeding from her left upper extremity fistula. Her vital signs have been stable throughout her ED course. I unwrapped the bandage from EMS and the patient did have 2 small areas of pulsatile bleeding. A pressure dressing was then placed with both gauze and a Coban. Patient's labs were unremarkable including hemog lobin of 11. She does have renal failure consistent with her end-stage renal disease on hemodialysis. The patient was reevaluated again about 1 hour after our pressure dressing was placed and the bleeding has stopped. She still remains neurovascularly intact. The arm was once again dressed and she will remain with this dressing on at least until she goes to bed this evening. She will follow-up with her rollout manager and continue her normal dialysis schedule. She will go to the closest emergency department with any return of the bleeding, worsening of her symptoms, or with any acute distress. Critical Care Time: No Critical care attestation.: If time is entered above; I have spent that time in minutes in the direct care of this critically ill patient, excluding procedure time. ED Disposition Clinical Impression: Bleeding from dialysis shunt Qualifiers: Encounter type: initial encounter Qualified Code(s): T82.838A - Hemorrhage due to vascular prosthetic devices, implants and grafts, initial encounter Hypertension Qualifiers: Hypertension type: essential hypertension Qualified Code(s): I10 - Essential (primary) hypertension Disposition: TO HOME OR SELFCARE Is pt being admited?: No Condition: Stable Instructions: Hypertension (ED), End-Stage Kidney Disease (ED) Additional Instructions: Please follow-up with your rollout manager regarding the post dialysis bleeding and to confirm that you continue with your normal dialysis schedule. Go to the closest emergency department with any worsening of your symptoms or with any acu te distress. Referrals: Financial Operations Consultant, Your [Other] - 2-3 Days Time of Disposition: 18:46
[2020-02-25 17:55] LABS: Basophils # (Auto) 0.2 K/mm3 (0.0-0.1); Basophils % (Auto) 2.1 % (0.0-1.8); Eosinophils # (Auto) 0.2 K/mm3 (0.0-0.4); Eosinophils % (Auto) 2.3 % (0.0-4.3); Hematocrit 33.2 % (30.3-42.9); Lymphocytes # (Auto) 0.8 K/mm3 (1.2-5.4); Mean Corpuscular HGB Conc 33 % (30-34); Mean Corpuscular Volume 91 fl (79-97); Monocytes # (Auto) 0.7 K/mm3 (0.0-0.8); Monocytes % (Auto) 9.6 % (0.0-7.3); Platelet Count 219 K/mm3 (140-440); Red Blood Count 3.64 M/mm3 (3.65-5.03)
[2020-02-25 18:04] LABS: INR 1.14 (0.87-1.13); Partial Thromboplastin Time 29.9 Sec. (24.2-36.6)
[2020-02-25 18:13] LABS: Albumin 4.1 g/dL (3.9-5); Calcium 9.1 mg/dL (8.4-10.2)
[2020-02-25 19:03] VITALS: BP 166/63
== END 2020-02-25 19:02 | disposition home or self-care (01) ==
LOC: ED 16:55
DX: T82.838A Hemorrhage due to vascular prosthetic devices, implants and grafts, initial encounter (principal); E13.22 Other specified diabetes mellitus with diabetic chronic kidney disease; I13.2 Hypertensive heart and chronic kidney disease with heart failure and with stage 5 chronic kidney disease, or end stage renal disease; I50.9 Heart failure, unspecified; N18.6 End stage renal disease; Z99.2 Dependence on renal dialysis; Z79.4 Long term (current) use of insulin; K21.9 Gastro-esophageal reflux disease without esophagitis; Z87.891 Personal history of nicotine dependence; Z98.890 Other specified postprocedural states; Z88.1 Allergy status to other antibiotic agents; Y92.89 Other specified places as the place of occurrence of the external cause
CPT/HCPCS: 36415; 80053; 85025; 85610; 85730; 96374; 99284; J2405

== ENCOUNTER 2020-03-27 08:00 | Emergency (ER) | payer MEDICARE ==
--- NOTE | 2020-03-27 08:42 | Emergency Department Report ---
HPI - General Chief Complaint: Weakness Time Seen by Provider: 03/27/20 08:23 - HPI HPI: Room 6 The patient is a 60-year-old female present with a chief complaint of "feeling bad." The patient is a poor historian and states she came to the emergency de partment because she does not "feel like" herself. Patient is unable to give me specific complaints stating that she "feels bad." Family reported the patient has not eaten in 3 days. When asked about this the patient replies she has not had an appetite. Patient states 3 days ago she had episodes of nausea vomiting but none currently. Patient denies pain of any type or shortness of breath. Niraj adam denies fever. Patient admits an occasional cough for 1 week and states that is occasionally productive of yellow sputum. ED Past Medical Hx - Past Medical History Previous Medical History?: Yes Hx Hypertension: Yes Hx Heart Attack/AMI: Yes Hx Congestive Heart Failure: Yes Hx Diabetes: Yes Hx GERD: Yes Hx Renal Disease: Yes (T, TH, SAT) Additional medical history: Open heart surgery (March 2017), L Leg BKA - Surgical History Past Surgical History?: Yes Hx Coronary Stent: Yes Hx Open Heart Surgery: Yes Additional Surgical History: hernia repair. graft left upper arm, T&A, L.B.K.A - Family History Family history: no significant - Social History Smoking Status: Never Smoker Substance Use Type: None - Medications Home Medications: Home Medications Medication Instructions Recorded Confirmed Last Taken Type AtorvaSTATin [Lipitor] 20 mg PO QHS 08/26/19 11/17/19 08/25/19 History Clopidogrel [Plavix] 75 mg PO QDAY 08/26/19 11/17/19 08/25/19 History Gabapentin 100 mg PO QHS 08/26/19 11/17/19 08/25/19 History Levothyroxine [Synthroid] 25 mcg PO QAM 08/26/19 11/17/19 08/25/19 History Sevelamer Carbonate [Renvela] 800 mg PO TIDWM 08/26/19 11/17/19 08/25/19 History amLODIPine 10 mg PO DAILY 08/26/19 11/17/19 08/25/19 History carvediloL [Coreg] 25 mg PO BID 08/26/19 11/17/19 08/25/19 History ondansetron HCL [Ondansetron TAB] 4 mg PO Q6HR PRN 08/26/19 11/17/19 08/25/19 History Losartan [Cozaar] 50 mg PO QDAY #30 tablet 11/17/19 Unknown Rx NovoLOG 100 UNITS/ML VIAL See Protocol SQ ACHS 11/17/19 11/17/19 Unknown History Promethazine [Phenergan] 25 mg PO Q6HR PRN #20 tab 03/27/20 Unknown Rx Promethazine [Phenergan] 25 mg TN Q6HR PRN #5 supp.rect 03/27/20 Unknown Rx ED Review of Systems ROS: Stated complaint: WEAKNESS/DEHYDRATION Other details as noted in HPI Constitutional: denies: fever Eyes: denies: eye pain ENT: denies: throat pain Respiratory: cough. denies: shortness of breath Cardiovascular: denies: chest pain Gastrointestinal: nausea, vomiting. denies: abdominal pain, diarrhea Genitourinary: denies: dysuria Musculoskeletal: denies: back pain Neurological: denies: headache Physical Exam - Physical Exam Vital Signs: Vital Signs 03/27/20 08:11 Temperature 98.8 F Pulse Rate 108 H Respiratory 20 Rate Blood Pressure 160/90 O2 Sat by Pulse 98 Oximetry Physical Exam: GENERAL: The patient is well-developed well-nourished female sitting on stretcher not appearing to be in acute distress. [] HEENT: Normocephalic. Atraumatic. Extraocular motions are intact. Patient has moist mucous membranes. NECK: Supple. Trachea midline CHEST/LUNGS: Clear to auscultation. There is no respiratory distress noted. HEART/CARDIOVASCULAR: Regular. There is no tachycardia. There is no gallop rub or murmur. ABDOMEN: Abdomen is soft, nontender. Patient has normal bowel sounds. There is no abdominal distention. SKIN: There is no rash. There is no edema. There is no diaphoresis. NEURO: The patient is awake, alert, and oriented. The patient is cooperative. The patient has no focal neurologic deficits. The patient has normal speech MUSCULOSKELETAL: There is no evidence of acute injury. ED Course Vital Signs 03/27/20 08:11 Temperature 98.8 F Pulse Rate 108 H Respiratory 20 Rate Blood Pressure 160/90 O2 Sat by Pulse 98 Oximetry - Reevaluation(s) Reevaluation #1: 03/27/20 13:58 Patient sitting on stretcher comfortably in no acute distress ED Medical Decision Making - Lab Data Result diagrams: 03/27/20 08:59 03/27/20 08:59 Laboratory Tests 03/27/20 03/27/20 03/27/20 08:59 08:59 08:59 WBC 3.7 L RBC 3.25 L Hgb 9.6 L Hct 29.8 L MCV 92 MCH 30 MCHC 32 RDW 19.5 H Plt Count 188 Lymph % (Auto) 11.1 L Mclean % (Auto) 8.4 H Eos % (Auto) 0.1 Baso % (Auto) 1.9 H Lymph # 0.4 L Mclean # 0.3 Eos # 0.0 Baso # 0.1 Seg Neutrophils % 78.5 H Seg Neutrophils # 2.9 PT 16.1 H INR 1.28 H APTT 34.9 VBG pH Sodium 135 L Potassium 3.6 Chloride 91.7 L Carbon Dioxide 30 Anion Gap 17 BUN 18 H Creatinine 5.4 H Estimated GFR 10 BUN/Creatinine Ratio 3 Glucose 113 H Calcium 8.7 Total Bilirubin 0.80 AST 24 ALT 10 Alkaline Phosphatase 69 Total Creatine Kinase 188 H CK-MB (CK-2) 1.7 CK-MB (CK-2) Rel Index 0.9 Troponin T 0.401 H* Total Protein 7.3 Albumin 3.7 L Albumin/Globulin Ratio 1.0 Triglycerides 120 Cholesterol 65 LDL Cholesterol Direct 25 L HDL Cholesterol 19 L Cholesterol/HDL Ratio 3.42 Lipase 13 TSH Free T4 03/27/20 03/27/20 03/27/20 08:59 08:59 12:30 WBC RBC Hgb Hct MCV MCH MCHC RDW Plt Count Lymph % (Auto) Mclean % (Auto) Eos % (Auto) Baso % (Auto) Lymph # Mclean # Eos # Baso # Seg Neutrophils % Seg Neutrophils # PT INR APTT VBG pH 7.455 H Sodium Potassium Chloride Carbon Dioxide Anion Gap BUN Creatinine Estimated GFR BUN/Creatinine Ratio Glucose Calcium Total Bilirubin AST ALT Alkaline Phosphatase Total Creatine Kinase CK-MB (CK-2) CK-MB (CK-2) Rel Index Troponin T 0.402 H* Total Protein Albumin Albumin/Globulin Ratio Triglycerides Cholesterol LDL Cholesterol Direct HDL Cholesterol Cholesterol/HDL Ratio Lipase TSH 3.880 Free T4 1.56 H - EKG Data -: EKG Interpreted by Il EKG shows normal: sinus rhythm Rate: normal - EKG Data When compared to previous EKG there are: previous EKG unavailable Interpretation: nonspecific ST-T wave chetan (T wave inversion in lead aVL) - Radiology Data Radiology results: report reviewed (Chest x-ray), image reviewed (Chest x-ray) interpreted by me: Chest [id number]. No pneumothorax [facility] [address] [place] [address] XRay Report Signed Patient: NEELA MAIER MR#: [id number] : 1960 Acct:[id number] Age/Sex: 60 / F ADM Date: 03/27/20 Loc: ED Attending Dr: Ordering Physician: MASON CONRAD MD Date of Service: 03/27/20 Procedure(s): XR chest 1V ap Accession Number(s): [id number] cc: MASON CONRAD MD Fluoro Time In Minutes: CHEST 1 VIEW INDICATION: Cough. COMPARISON: 11/16/2019 FINDINGS: Support devices: None. Heart: Enlargement of the cardiac silhouette is again noted. Lungs/Pleura: Mild perihilar interstitial opacities are suggestive of pulmonary venous hypertension, mild interstitial edema could have this appearance. IMPRESSION: 1. Enlargement of the cardiac silhouette with pulmonary venous hypertension and possible mild interstitial edema. There is limited evaluation of the retrocardiac left lung base. Signer Name: Rl Vivas MD Signed: 03/27/2020 9:11 AM Workstation Name: [id number] Transcribed By: Dictated By: Rl Vivas MD Electronically Authenticated By: Rl Vivas MD Signed Date/Time: 03/27/20910 DD/ 9 TD/TT: - Differential Diagnosis Electrolyte abnormality, symptomatic anemia, hypothyroidism, Critical care attestation.: If time is entered above; I have spent that time in minutes in the direct care of this critically ill patient, excluding procedure time. ED Disposition Clinical Impression: History of vomiting Disposition: DC-01 TO HOME OR SELFCARE Is pt being admited?: No Does the pt Need Aspirin: No Condition: Stable Instructions: Acute Nausea and Vomiting (ED) Additional Instructions: Return to the emergency department should you develop worsening symptoms, inability to tolerate food or liquids, high fever or any other concerns Prescriptions: Promethazine [Phenergan] 25 mg PO Q6HR PRN #20 tab PRN Reason: Nausea Promethazine [Phenergan] 25 mg TN Q6HR PRN #5 supp.rect PRN Reason: Vomiting Referrals: PRIMARY CARE, [Referring] - 3-5 Days Time of Disposition: 14:00
--- NOTE | 2020-03-27 09:15 | XRay Report ---
CHEST 1 VIEW INDICATION: Cough. COMPARISON: 11/16/2019 FINDINGS: Support devices: None. Heart: Enlargement of the cardiac silhouette is again noted. Lungs/Pleura: Mild perihilar interstitial opacities are suggestive of pulmonary venous hypertension, mild interstitial edema could have this appearance. IMPRESSION: 1. Enlargement of the cardiac silhouette with pulmonary venous hypertension and possible mild interst itial edema. There is limited evaluation of the retrocardiac left lung base. Signer Name: Rl Vivas MD Signed: 03/27/2020 9:11 AM Workstation Name: [id number]
[2020-03-27 09:23] LABS: Basophils # (Auto) 0.1 K/mm3 (0.0-0.1); Basophils % (Auto) 1.9 % (0.0-1.8); Eosinophils % (Auto) 0.1 % (0.0-4.3); Hematocrit 29.8 % (30.3-42.9); Hemoglobin 9.6 gm/dl (10.1-14.3); Lymphocytes # (Auto) 0.4 K/mm3 (1.2-5.4); Lymphocytes % (Auto) 11.1 % (13.4-35.0); Mean Corpuscular HGB Conc 32 % (30-34); Mean Corpuscular Volume 92 fl (79-97); Monocytes # (Auto) 0.3 K/mm3 (0.0-0.8); Monocytes % (Auto) 8.4 % (0.0-7.3); Platelet Count 188 K/mm3 (140-440); Red Blood Count 3.25 M/mm3 (3.65-5.03); Red Cell Distribution Width 19.5 % (13.2-15.2)
[2020-03-27 09:51] LABS: Creatine Kinase MB 1.7 ng/mL (0.0-4.0)
[2020-03-27 09:52] LABS: Albumin 3.7 g/dL (3.9-5); Calcium 8.7 mg/dL (8.4-10.2)
[2020-03-27 09:58] LABS: Free T4 (Free Thyroxine) 1.56 ng/dL (0.76-1.46)
[2020-03-27 09:59] LABS: INR 1.28 (0.87-1.13)
[2020-03-27 10:00] LABS: Partial Thromboplastin Time 34.9 Sec. (24.2-36.6)
[2020-03-27 10:29] LABS: Chol/HDL Ratio 3.42 %
[2020-03-27 10:35] VITALS: BP 150/67
== END 2020-03-27 14:45 | disposition home or self-care (01) ==
LOC: ED 08:00
DX: R11.2 Nausea with vomiting, unspecified (principal); I10 Essential (primary) hypertension; I11.0 Hypertensive heart disease with heart failure; I50.9 Heart failure, unspecified; K21.9 Gastro-esophageal reflux disease without esophagitis; E11.9 Type 2 diabetes mellitus without complications; I25.2 Old myocardial infarction; Z90.49 Acquired absence of other specified parts of digestive tract; Z98.890 Other specified postprocedural states; Z79.899 Other long term (current) drug therapy; Z88.8 Allergy status to other drugs, medicaments and biological substances
CPT/HCPCS: 36415; 71045; 80053; 80061; 82550; 82553; 82805; 83690; 84439; 84443; 84484; 85025; 85610; 85730; 93005

== ENCOUNTER 2020-08-18 16:50 | Emergency (ER) | payer MEDICARE ==
[2020-08-18 19:22] LABS: Basophils # (Auto) 0.1 K/mm3 (0.0-0.1); Basophils % (Auto) 2.1 % (0.0-1.8); Eosinophils # (Auto) 0.2 K/mm3 (0.0-0.4); Hematocrit 35.1 % (30.3-42.9); Hemoglobin 11.6 gm/dl (10.1-14.3); Lymphocytes # (Auto) 0.6 K/mm3 (1.2-5.4); Lymphocytes % (Auto) 9.5 % (13.4-35.0); Mean Corpuscular HGB Conc 33 % (30-34); Mean Corpuscular Volume 92 fl (79-97); Monocytes # (Auto) 0.7 K/mm3 (0.0-0.8); Monocytes % (Auto) 10.7 % (0.0-7.3); Platelet Count 130 K/mm3 (140-440); Red Cell Distribution Width 19.7 % (13.2-15.2)
--- NOTE | 2020-08-18 19:23 | Emergency Department Report ---
ED General Adult HPI - General Chief complaint: Extremity Injury, Upper Stated complaint: BLEEDING FROM PORT Time Seen by Provider: 08/18/20 18:37 Source: EMS Mode of arrival: Stretcher Limitations: Physical Limitation - History of Present Illness Initial comments: Patient is a 60 years old female with history of end-stage renal disease on hemodialysis. Patient brought to the emergency room from dialysis center after patient finished dialysis she started bleeding heavily from her left arm fistula. Pressure dressing applied by EMS. Upon arrival to the ER we kept the pressure dressing for approximately another 20 minutes and examined the fistula site however patient is still actively bleeding upon removal of dressing. Tourniquet applied to the left upper extremity immediately however for a brief time and patient sutured with [id number] stitches and that completely stop the bleeding. Patient vital signs stable. - Related Data Home Medications Medication Instructions Recorded Confirmed Last Taken AtorvaSTATin [Lipitor] 20 mg PO QHS 08/26/19 08/18/20 08/25/19 Clopidogrel [Plavix] 75 mg PO QDAY 08/26/19 08/18/20 08/25/19 Gabapentin 300 mg PO HS 08/26/19 08/18/20 08/25/19 Levothyroxine [Synthroid] 25 mcg PO QAM 08/26/19 08/18/20 08/25/19 Sevelamer Carbonate [Renvela] 800 mg PO TIDWM 08/26/19 08/18/20 08/25/19 carvediloL [Coreg] 25 mg PO BID 08/26/19 08/18/20 08/25/19 ondansetron HCL [Ondansetron TAB] 4 mg PO Q6HR PRN 08/26/19 08/18/20 08/25/19 NovoLOG 100 UNITS/ML VIAL See Protocol SQ ACHS 11/17/19 08/18/20 Unknown Pantoprazole [Protonix] 40 mg PO QDAY 07/02/20 08/18/20 Unknown Ergocalciferol [Vitamin D2] 1,250 mcg PO DAILY 08/18/20 08/18/20 Unknown Ferric Citrate (Nf) [Auryxia] 210 mg PO DAILY 08/18/20 08/18/20 Unknown Trazodone HCl 150 mg PO DAILY 08/18/20 08/18/20 Unknown Previous Rx's Medication Instructions Recorded Last Taken Type Losartan [Cozaar] 50 mg PO QDAY #30 tablet 11/17/19 Unknown Rx Allergies Allergy/AdvReac Type Severity Reaction Status Date / Time ceftriaxone [From Rocephin] AdvReac Intermediate Vomiting Verified 08/18/20 18:18 escitalopram [From Lexapro] AdvReac Vomiting Verified 08/18/20 18:26 ED Review of Systems ROS: Stated complaint: BLEEDING FROM PORT Other details as noted in HPI Comment: All other systems reviewed and negative Constitutional: denies: chills, fever Respiratory: denies: cough, shortness of breath, SOB with exertion, SOB at rest Cardiovascular: denies: chest pain, palpitations Gastrointestinal: denies: abdominal pain, nausea, vomiting Musculoskeletal: denies: back pain Neurological: denies: headache, weakness ED Past Medical Hx - Past Medical History Hx Hypertension: Yes Hx Heart Attack/AMI: Yes Hx Congestive Heart Failure: Yes Hx Diabetes: Yes Hx GERD: Yes Hx Renal Disease: Yes (T, TH, SAT) Hx Kidney Stones: No Hx Asthma: No Hx COPD: No Hx Tuberculosis: No Hx HIV: No Additional medical history: Open heart surgery (March 2017), L Leg BKA - Surgical History Hx Coronary Stent: Yes Hx Open Heart Surgery: Yes Hx Pacemaker: No Hx Internal Defibrillator: No Additional Surgical History: hernia repair. graft left upper arm, T&A, L.B.K.A - Social History Smoking Status: Never Smoker Substance Use Type: None - Medications Home Medications: Home Medications Medication Instructions Recorded Confirmed Last Taken Type AtorvaSTATin [Lipitor] 20 mg PO QHS 08/26/19 08/18/20 08/25/19 History Clopidogrel [Plavix] 75 mg PO QDAY 08/26/19 08/18/20 08/25/19 History Gabapentin 300 mg PO HS 08/26/19 08/18/20 08/25/19 History Levothyroxine [Synthroid] 25 mcg PO QAM 08/26/19 08/18/20 08/25/19 History Sevelamer Carbonate [Renvela] 800 mg PO TIDWM 08/26/19 08/18/20 08/25/19 History carvediloL [Coreg] 25 mg PO BID 08/26/19 08/18/20 08/25/19 History ondansetron HCL [Ondansetron TAB] 4 mg PO Q6HR PRN 08/26/19 08/18/20 08/25/19 History Losartan [Cozaar] 50 mg PO QDAY #30 tablet 11/17/19 08/18/20 Unknown Rx NovoLOG 100 UNITS/ML VIAL See Protocol SQ ACHS 11/17/19 08/18/20 Unknown History Pantoprazole [Protonix] 40 mg PO QDAY 07/02/20 08/18/20 Unknown History Ergocalciferol [Vitamin D2] 1,250 mcg PO DAILY 08/18/20 08/18/20 Unknown History Ferric Citrate (Nf) [Auryxia] 210 mg PO DAILY 08/18/20 08/18/20 Unknown History Trazodone HCl 150 mg PO DAILY 08/18/20 08/18/20 Unknown History ED Physical Exam - General Limitations: Physical Limitation General appearance: alert, in no apparent distress - Head Head exam: Present: atraumatic - Eye Eye exam: Present: normal appearance, PERRL - ENT ENT exam: Present: normal exam, normal orophraynx, mucous membranes moist - Neck Neck exam: Present: normal inspection - Respiratory Respiratory exam: Present: normal lung sounds bilaterally - Cardiovascular Cardiovascular Exam: Present: regular rate - GI/Abdominal GI/Abdominal exam: Present: soft, normal bowel sounds. Absent: distended, tenderness, guarding, rebound, rigid - Extremities Exam Extremities exam: Present: other (Left arm AV fistula actively bleeding. Pressure dressing applied. Patient will require suture.) - Neurological Exam Neurological exam: Present: alert, oriented X3 ED Course Vital Signs 08/18/20 08/18/20 08/18/20 18:16 19:35 23:15 Temperature 98.2 F Pulse Rate 71 69 74 Respiratory 20 16 16 Rate Blood Pressure 178/70 Blood Pressure 189/76 175/82 [Right] O2 Sat by Pulse 95 99 97 Oximetry - Laceration /Wound Repair Left Arm Wound Location: upper extremity Wound Repaired With: sutures Suture Size/Type: 4:0 Progress: I have applied for [facility] states she is on the actively bleeding her left arm fistula. Bleeding completely stopped. ED Medical Decision Making - Lab Data Result diagrams: 08/18/20 18:50 08/18/20 18:50 - Medical Decision Making Patient is a 60 years old female with history of end-stage renal disease on hemodialysis. Patient brought to the emergency room from dialysis center after patient finished dialysis she started bleeding heavily from her left arm fistula. Pressure dressing applied by EMS. Upon arrival to the ER we kept the pressure dressing for approximately another 20 minutes and examined the fistula site however patient is still actively bleeding upon removal of dressing. Tourniquet applied to the left upper extremity immediately however for a brief time and patient sutured with [id number] stitches and that completely stop the bleeding. Patient vital signs stable. Critical Care Time: Yes Critical care time in (mins) excluding proc time.: 30 Critical care attestation.: If time is entered above; I have spent that time in minutes in the direct care of this critically ill patient, excluding procedure time. ED Disposition Clinical Impression: Hemorrhage of arteriovenous fistula Disposition: TO HOME OR SELFCARE Is pt being admited?: No Condition: Stable Instructions: End-Stage Kidney Disease (ED) Referrals: PRIMARY CARE [Primary Care Provider] - 3-5 Days
[2020-08-18 19:32] LABS: INR 1.17 (0.87-1.13)
[2020-08-18 19:33] LABS: Partial Thromboplastin Time 33.7 Sec. (24.2-36.6)
[2020-08-18 19:40] LABS: Calcium 9.6 mg/dL (8.4-10.2)
[2020-08-19 01:38] VITALS: BP 175/82
== END 2020-08-18 23:15 | disposition home or self-care (01) ==
LOC: ED 16:50
PROC: 0DQQXZZ Repair Anus, External Approach (ICD-10-PCS; principal; 2020-08-18)
DX: T82.838A Hemorrhage due to vascular prosthetic devices, implants and grafts, initial encounter (principal); I11.0 Hypertensive heart disease with heart failure; I50.9 Heart failure, unspecified; I25.2 Old myocardial infarction; E11.9 Type 2 diabetes mellitus without complications; K21.9 Gastro-esophageal reflux disease without esophagitis; Z90.49 Acquired absence of other specified parts of digestive tract; Z98.890 Other specified postprocedural states; Z79.899 Other long term (current) drug therapy; Z88.8 Allergy status to other drugs, medicaments and biological substances
CPT/HCPCS: 36415; 80048; 85025; 85610; 85730; 99283